=== PATIENT | female | born 1970 | race Caucasian/White ===

== ENCOUNTER 2023-04-08 07:42 | Emergency (ER) | payer OTHER ==
[2023-04-08 07:49] VITALS: BP 105/82; PULSE 62; RESP 16; TEMP 97.9; BMI 25.0
== END 2023-04-08 08:01 | disposition home or self-care (01) ==
LOC: FER 07:42
DX: S60.444A External constriction of right ring finger, initial encounter (principal); W49.04XA Ring or other jewelry causing external constriction, initial encounter
CPT/HCPCS: 99282-25